=== PATIENT | female | born 1945 | race Two or more races ===

== ENCOUNTER 2017-10-26 10:50 | Emergency (ER) | payer MEDICARE ==
[~2017-10-26] VITALS: Ht 160 cm; Wt 48.1 kg
[2017-10-26 10:55] VITALS: BP 132/75
== END 2017-10-26 12:19 | disposition home or self-care (01) ==
LOC: ER 11:08
DX: J40 Bronchitis, not specified as acute or chronic (principal)
CPT/HCPCS: 71045-TC; A4606; Z7610